=== PATIENT | male | born 1990 | race Two or more races ===

== ENCOUNTER 2018-06-03 18:15 | Emergency (ER) | payer SELFPAY ==
[~2018-06-03] VITALS: Ht 180.3 cm; Wt 78.2 kg
[2018-06-03] MEDS ORDERED: FLUORESCEIN SODIUM 1 MG STRIP OD ONE (19:30)
[2018-06-03] MEDS ORDERED: PROPARACAINE HCL 0.5% 15 ML OPHTHALMIC SOLUTION OD ONE (19:30)
[2018-06-03 21:01] VITALS: BP 120/83
== END 2018-06-03 21:03 | disposition home or self-care (01) ==
LOC: EMS 18:16
DX: H10.89 Other conjunctivitis (principal); B99.8 Other infectious disease; F12.90 Cannabis use, unspecified, uncomplicated; F17.210 Nicotine dependence, cigarettes, uncomplicated
CPT/HCPCS: 99283